=== PATIENT | male | born 1985 | race Caucasian/White ===

== ENCOUNTER 2019-12-24 23:17 | Emergency (ER) | payer OTHER ==
[2019-12-24 23:22] VITALS: BP 132/84; PULSE 95; TEMP 98; BMI 30.8
[2019-12-24] MEDS ORDERED: AMOX TR/POT CLAV 875MG/125MG TABLETS (FP) PO ONE (23:25)
[2019-12-24] MEDS ORDERED: AMOX TR/POT CLAV 875MG/125MG TABLETS (FP) ONE (23:41)
== END 2019-12-25 00:04 | disposition home or self-care (01) ==
LOC: JER 23:17
DX: S51.851A Open bite of right forearm, initial encounter (principal); W54.0XXA Bitten by dog, initial encounter
CPT/HCPCS: 73090-TC-RT-FY; 99284-25